=== PATIENT | female | born 1980 | race Caucasian/White ===

== ENCOUNTER 2019-06-20 21:48 | Emergency (ER) | payer BC ==
[2019-06-20] MEDS ORDERED: Ondansetron 4 MG/2 ML SDV IVPUSH ONE (22:14)
[2019-06-20] MEDS ORDERED: Sodium Chloride 0.9% 1,000 ML IV ONE (22:14)
[2019-06-20 22:45] LABS: BLOOD UREA NITROGEN,BUN 13 mg/dL (7.0-18.0); CARBON DIOXIDE,CO2 27.3 mmol/L (21.0-32.0); CHLORIDE,CL 104 mmol/L (98-107); GLUCOSE RANDOM 117 mg/dL (74-106); POTASSIUM,K 3.6 mmol/L (3.5-5.1); SODIUM,NA 142 mmol/L (136-145)
--- NOTE | 2019-06-20 22:47 | CR ---
INDICATION: Right shoulder and back pain, lightheaded, vomiting TECHNIQUE: Chest 2 views. COMPARISON: June 30, 2015 FINDINGS: Cardiovascular and mediastinum: Heart size and vasculature are normal in caliber and appearance. Mediastinum is within normal limits. Lungs and pleural spaces: Lungs are clear. No sign of infiltrate or mass. No sign of pleural effusion. No pneumothorax. Bones and soft tissues: There is an air-filled loop of small bowel in the upper abdomen measuring 4.3 cm in diameter, best seen on the lateral view. IMPRESSION: No sign of acute intrathoracic disease. Dilated loop of small bowel in the upper abdomen. Consider or CT abdomen pelvis for further evaluation if clinically indicated. Dictated by Maddi Son MD @ Jun 20 2019 10:42PM Signed by Dr. Maddi Son @ Jun 20 2019 10:44PM
--- NOTE | 2019-06-21 01:05 | EDM.PDOC ---
ED [facility] GENERAL MEDICAL PROBLEM - General Chief Complaint: General Stated Complaint: ARM PAIN, VOMITTING, BACK PAIN, CHEST PAIN Time Seen by Provider: 06/20/19 22:00 - History of Present Illness INITIAL COMMENTS - FREE TEXT/NARRATIVE: HPI 39-year-old morbidly obese female presents for evaluation of sudden onset feeling of upper back discomfort, accompanied by nausea and emesis 2, now with resolved symptoms. Denies chest pain, shortness of breath, fevers, chills, or further symptoms. Triage note: AOx4, states pain to upper back, feeling nauseous, hot & dizzy which started 30minutes ago, denies any chest pain or SOB. M/S/F/SocHx notable for: please see HPI; remainder reviewed with patient and in chart. ROS: Negative constitutional, eye, cardiovascular, pulmonary, GI, , MSK, skin , neurologic, psychiatric, endocrine unless noted in the HPI. Exam HR 90, RR 18, BP 143/96, T 36.8C, SaO2 98% on room air. Gen: Pleasant, non-toxic appearing, resting comfortably. HEENT: NC, AT, PEERL, EOMI. Resp: Clear to auscultation bilaterally, normal work of breathing, no accessory muscle usage. Card: Regular rate and rhythm with no murmurs, rubs, or gallops, extremities warm and well perfused. GI: Non-tender to palpation throughout all quadrants, no focal tenderness at McBurney's point, negative Rapp's sign, non-distended, no rebound or guarding. : No suprapubic tenderness to palpation. MSK: No visible deformities, strength and tone without visually appreciable deficit. Skin: Normal color with no visible lesions. Neuro: alert and oriented 3, no facial asymmetry, no gaze preference, no slurring of speech. CN II-III: pupils equal and reactive (4->2mm bilaterally); III, IV, : EOMI, V1-V3: sensation to touch bilaterally intact; VII: no facial asymmetry (frown / smile); VIII: no nystagmus; X: phonation intact, uvula midline; XI: trapezius 5/5 bilaterally, XII: tongue midline. Cerebellar: no pronator drift, [id number] testing without dysmetria bilaterally, heel to hua without dysmetria bilaterally. No C or T spine tenderness palpation. Psych: Mood and affect appropriate. Labs / Imaging: WBC 12.29, HB 13.8, sodium 142, potassium 3.6, troponin (10:10 PM) <0.050, troponin (12:25 AM) <0.050, CRP 0.70, ESR 11, d-dimer 0.37. CXR: no sign of acute intrathoracic disease. EKG: SR at [address]-segment elevations or depressions, T-wave inversions or new LBBB. MS interval 164 msec, QTc 464 msec, no delta waves, epsilon waves, coved or saddle ST-segment changes in leads V1-3, preseptal or inferior lead Q-waves, biphasic P-waves, or T-wave inversions; no LVH. MDM Previous chart, nursing note, labs, imaging, and vitals reviewed. A: 39-year-old morbidly obese female presents for evaluation of sudden onset feeling of upper back discomfort, accompanied by nausea and emesis 2, now with resolved symptoms. Evaluation: patient is well-appearing, the sudden and brief period of discomfort with emesis multiple occasions 92 is currently of unclear etiology, however the patients vitals and laboratory studies (WBC notwithstanding) are within normal limits. Chest x-rays without evidence of infection, mediastinal widening, or other abnormalities. The patients d-dimer is negative, given a Wells score of 0 this is appropriate for PE rule out/risk stratification. Similarly, with the low pretest probability by clinical Gestalt for dissection, and unremarkable chest x-ray, and a negative d-dimer, this entity is felt to be excluded as well. No evidence of ACS by nonischemic EKG and negative serial cardiac enzymes. No evidence of further cardiopulmonary abnormalities given the ECG and the above findings. Electrolytes are within acceptable limits. There is mild leukocytosis, this is currently felt to be due to either stress demargination or early findings of gastroenteritis. Spinal infection was also considered, however given lack of point tenderness and normal ESR and CRP as well as absence of any neuro deficits, this is considered to be effectively excluded. At the time of the patients ED care her vital signs were stable and within acceptable limits. Patient was given IV hydration, Zofran, was able to take PO well, and had no further recurrence of symptoms. Disposition: discharge with PCP follow-up recommended. Return to care precautions provided. Impression: nausea and vomiting. (please reference below for remainder of encounter information) Liban' (Signs & Sx of DVT - 0, PE is #1 or equally likelihood - 0, HR > 100 - 0 , immobilization of >=3 days or surgery in last 28 days - 0, prior DVT or PE - 0 , hemoptysis - 0, malignancy w/ tx in last 6 mo or palliative - 0). upper back Pain Score (Numeric/FACES): 6 - Related Data Allergies Allergy/AdvReac Type Severity Reaction Status Date / Time penicillin Allergy Hives Verified 06/20/19 21:50 shellfish derived Allergy throat Verified 06/20/19 21:50 swelling Sulfa (Sulfonamide Allergy Swelling Verified 06/20/19 21:50 Antibiotics) Home Meds: Home Meds ALPRAZolam [Alprazolam] 0.5 mg PO ASDIRECTED PRN 11/24/14 [History] Escitalopram Oxalate [Lexapro] 10 mg PO DAILY 06/20/19 [History] Past Medical History HEENT History: Reports: Sinusitis, Other (See Below) Other HEENT History: waering spectables Cardiovascular History: Reports: None Respiratory History: Reports: None Gastrointestinal History: Reports: None Genitourinary History: Reports: None SAILING MASTER History: Reports: None Musculoskeletal History: Reports: Other (See Below) Other Musculoskeletal History: surgery for lt foot fx, Neurological History: Reports: None Psychiatric History: Reports: Anxiety, Depression Endocrine/Metabolic History: Reports: None 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[place] Department: None Hematologic History: Reports: None Immunologic History: Reports: None Oncologic (Cancer) History: Reports: None Dermatologic History: Reports: Other (See Below) Other Dermatologic History: Eczema - Infectious Disease History Infectious Disease History: Reports: None - Past Surgical History Head Surgeries/Procedures: Reports: None GI Surgical History: Reports: Colonoscopy, Other (See Below) Female Surgical History: Reports: None Endocrine Surgical History: Reports: None Neurological Surgical History: Reports: None Social & Family History - Family History Family Medical History: Noncontributory - Tobacco Use Smoking Status *Q: Never Smoker - Caffeine Use Caffeine Use: Reports: Soda - Recreational Drug Use Recreational Drug Use: No ED ROS GENERAL - Review of Systems Review Of Systems: See Below ED EXAM, GENERAL - Physical Exam Exam: See Below Course - Vital Signs Last Recorded V/S: Last Vital Signs Temp 36.4 C 06/20/19 23:35 Pulse 73 06/20/19 23:35 Resp 18 06/20/19 23:35 BP 150/86 H 06/20/19 23:35 Pulse Ox 97 06/20/19 23:35 - Orders/Labs/Meds Orders: Active Orders 24 hr Category Date Time Status EKG 12 Lead [EKG Documentation Completion] [RC] STAT Care 06/20/19 21:57 Active Labs: Laboratory Tests 06/20/19 06/20/19 06/20/19 Range/Units 22:10 22:10 22:10 WBC 12.29 H (4.0-11.0) K/uL RBC 4.73 (4.30-5.90) M/uL Hgb 13.8 (12.0-16.0) g/dL Hct 41.8 (36.0-46.0) % MCV 88.4 (80.0-98.0) fL MCH 29.2 (27.0-32.0) pg MCHC 33.0 (31.0-37.0) g/dL RDW Std Deviation 44.4 (28.0-62.0) fl RDW Coeff of Vikki 14 (11.0-15.0) % Plt Count 265 (150-400) K/uL MPV 12.30 H (7.40-12.00) fL Neut % (Auto) 56.2 (48.0-80.0) % Lymph % (Auto) 31.4 (16.0-40.0) % Mcduffie % (Auto) 9.6 (0.0-15.0) % Eos % (Auto) 2.3 (0.0-7.0) % Baso % (Auto) 0.5 (0.0-1.5) % Neut # (Auto) 6.9 H (1.4-5.7) K/uL Lymph # (Auto) 3.9 H (0.6-2.4) K/uL Mcduffie # (Auto) 1.2 H (0.0-0.8) K/uL Eos # (Auto) 0.3 (0.0-0.7) K/uL Baso # (Auto) 0.1 (0.0-0.1) K/uL Nucleated RBC % 0.0 /100WBC Nucleated RBCs # 0 K/uL ESR (0-19) mm/hr D-Dimer, Quantitative 0.37 (0.0-0.50) mg/L FEU Sodium 142 (136-145) mmol/L Potassium 3.6 (3.5-5.1) mmol/L Chloride 104 (98-107) mmol/L Carbon Dioxide 27.3 (21.0-32.0) mmol/L BUN 13 (7.0-18.0) mg/dL Creatinine 0.9 (0.6-1.0) mg/dL Est Cr Clr Drug Dosing 83.23 mL/min Estimated GFR (MDRD) > 60.0 ml/min Glucose 117 H (74-106) mg/dL Calcium 8.8 (8.5-10.1) mg/dL Troponin I < 0.050 (0.000-0.056) ng/mL C-Reactive Protein 0.70 (0.00-0.90) mg/dL 06/20/19 06/21/19 Range/Units 22:10 00:25 WBC (4.0-11.0) K/uL RBC (4.30-5.90) M/uL Hgb (12.0-16.0) g/dL Hct (36.0-46.0) % MCV (80.0-98.0) fL MCH (27.0-32.0) pg MCHC (31.0-37.0) g/dL RDW Std Deviation (28.0-62.0) fl RDW Coeff of Vikki (11.0-15.0) % Plt Count (150-400) K/uL MPV (7.40-12.00) fL Neut % (Auto) (48.0-80.0) % Lymph % (Auto) (16.0-40.0) % Mcduffie % (Auto) (0.0-15.0) % Eos % (Auto) (0.0-7.0) % Baso % (Auto) (0.0-1.5) % Neut # (Auto) (1.4-5.7) K/uL Lymph # (Auto) (0.6-2.4) K/uL Mcduffie # (Auto) (0.0-0.8) K/uL Eos # (Auto) (0.0-0.7) K/uL Baso # (Auto) (0.0-0.1) K/uL Nucleated RBC % /100WBC Nucleated RBCs # K/uL ESR 11 (0-19) mm/hr D-Dimer, Quantitative (0.0-0.50) mg/L FEU Sodium (136-145) mmol/L Potassium (3.5-5.1) mmol/L Chloride (98-107) mmol/L Carbon Dioxide (21.0-32.0) mmol/L BUN (7.0-18.0) mg/dL Creatinine (0.6-1.0) mg/dL Est Cr Clr Drug Dosing mL/min Estimated GFR (MDRD) ml/min Glucose (74-106) mg/dL Calcium (8.5-10.1) mg/dL Troponin I < 0.050 (0.000-0.056) ng/mL C-Reactive Protein (0.00-0.90) mg/dL Meds: Medications Discontinued Medications Generic Name Dose Route Start Last Admin Trade Name Ariel PRN Reason Stop Dose Admin Sodium Chloride 1,000 mls @ 1,000 mls/hr 06/20/19 22:14 06/20/19 22:34 Normal Saline IV 06/20/19 23:13 1,000 mls/hr .Bolus ONE Administration Ondansetron HCl 4 mg 06/20/19 22:14 06/20/19 22:34 Zofran IVPUSH 06/20/19 22:15 4 mg ONETIME ONE Administration Departure - Departure Time of Disposition: 01:05 Disposition: Home, Self-Care 01 Clinical Impression: Nausea and vomiting - Discharge Information Referrals: Rachid Dai MD [Primary Care Provider] - Additional Instructions: You were in seen in the [facility] Emergency Department for evaluation of nausea vomiting. At time of your evaluation the cause of your symptoms is unclear, however no significant abnormalities were noted on your emergency department evaluation. Please read and follow all of the instructions below. Please follow up with your primary care physician within 48 hours repeat evaluation of your symptoms as well as your asymptomatic hypertension. When calling for follow-up care, please make the office aware that this follow-up is from your recent emergency room visit. If for any reason you are refused follow- up, please contact the [facility] Emergency Department at and asked to speak to the emergency department charge nurse. Your care today was limited to identifying and treating emergent medical problems only. Many people have subtle differences in their test results that require follow up with their outpatient physician(s) to correctly determine if this represents a normal variation or concerning abnormality with respect to your specific health. The care given to you today was limited to identifying and treating emergent medical problems - you need to request a copy of all of your medical records from today's visit and follow up with your outpatient physician(s) to review both today's visit and your overall health. If you have any new symptoms or if you are at all concerned about your health please return immediately to the emergency department. Prescriptions: If you are uninsured or have financial difficulties with filling your prescription(s), you may consider using a free pharmacy discount service such as [employer] ([employer]) or [employer] ([employer]). These services allow you to search for a medication on your phone (or computer) and obtain a coupon that usually has a significant discount from the list de la o at a pharmacy. Your physician as well as [facility] does not have a financial relationship with either of these services. You may also wish to speak with your physician to determine if lower cost prescriptions are possible. Obtaining primary care: 1. [facility] provides pediatrics (children), family medicine (children, adults, and some obstetrical care), and internal medicine (adults). Further specialty care is also available. Same day appointments are available. They may be contacted at [phone] and are open Thursday through Thursday 8 AM to 5 PM. The [facility] clinics are located at [facility], [address] [place], [place] [address]. 2. [facility] offers family medicine, internal medicine, womens health, and further specialty care. [facility] may be contacted at [phone]. [facility] is located at [address] [place], [address]. 3. If you have health insurance, please also contact your insurer for a list of accepting providers under your policy, you may contact these providers for further health care. Occupational health: Work related injuries may consider following up with [facility], . Occupational health services are located at [address] [place] [address] and are open Thursday through Thursday from 7: 30 am to 5:00 pm. Obstetrical and Gynecological Care: [facility], , Thursday through Thursday 8 AM to [address] [place] [address]. Eyecare: If you have an eye injury you should follow up with your ink maker or with [facility], at [phone] or [phone] , they are located at [address] [place] [address]. Dental Care Rajat Stein DDS. [address] [place], [place]. Ph. [phone] Marino Stein DDS MS. [address] [facility] [address], [place], [place]. Ph. Vikram Avery DDS. [address] [place]. Ph. [phone] Son Lucero DDS. [address] [facility] [address] [place], [place]. Ph. [phone] Tayo Bain DDS PC. [address] [facility] [address] [place], [place]. Ph. Colton King DDS. [address] [facility]. Ph. [phone] [facility]. [address], [place]. Ph. [phone] [facility]. [address], [place], [place]. Ph. [phone] [facility] [address] [place] [phone]. Ph. [facility]. [address] [place] [address] [address] [place], [place]. Ph. [facility]. [address], [place], [place]. Ph. Sepsis Event Note - Evaluation Sepsis Screening Result: No Definite Risk - Focused Exam Vital Signs: Vital Signs Temp Pulse Resp BP Pulse Ox 06/20/19 23:35 36.4 C 73 18 150/86 H 97 06/20/19 21:51 36.8 C 90 18 143/96 H 98 Date Exam was Performed: 06/21/19 Time Exam was Performed: 01:04 - My Orders Last 24 Hours: My Active Orders 06/20/19 21:57 EKG 12 Lead [EKG Documentation Completion] [] STAT - Assessment/Plan Last 24 Hours: My Active Orders 06/20/19 21:57 EKG 12 Lead [EKG Documentation Completion] [RC] STAT
[2019-06-21 01:15] VITALS: BP 128/83; PULSE 76
== END 2019-06-21 01:10 | disposition home or self-care (01) ==
LOC: MW.ED 21:48
DX: R11.2 Nausea with vomiting, unspecified (principal); M54.6 Pain in thoracic spine; E66.01 Morbid (severe) obesity due to excess calories; F41.9 Anxiety disorder, unspecified; F32.9 Major depressive disorder, single episode, unspecified; Z88.0 Allergy status to penicillin; Z88.2 Allergy status to sulfonamides; Z91.013 Allergy to seafood; Z79.899 Other long term (current) drug therapy
CPT/HCPCS: 36415; 71046; 80048; 84484; 85025; 85379; 85652; 86140; 93005; 96361; 96374; 99284; J2405; J7030

== ENCOUNTER 2021-08-30 12:05 | Emergency (ER) | payer BC ==
[2021-08-30 14:15] VITALS: BP 182/89; PULSE 88
== END 2021-08-30 14:10 | disposition home or self-care (01) ==
LOC: MW.ED 12:05
DX: S09.90XA Unspecified injury of head, initial encounter (principal); F41.9 Anxiety disorder, unspecified; F32.A Depression, unspecified; Z88.0 Allergy status to penicillin; Z88.2 Allergy status to sulfonamides; Z91.013 Allergy to seafood; Z79.899 Other long term (current) drug therapy; W20.8XXA Other cause of strike by thrown, projected or falling object, initial encounter; Y92.094 Garage of other non-institutional residence as the place of occurrence of the external cause
CPT/HCPCS: 70450; 70450-26; 99283-25

== ENCOUNTER 2022-04-25 22:09 | Emergency (ER) | payer BC ==
[2022-04-26 01:15] LABS: CORONAVIRUS COVID-19 NAA NEGATIVE (NEGATIVE); INFLUENZA A NAA NEGATIVE (NEGATIVE); INFLUENZA B NAA NEGATIVE (NEGATIVE); RESPIRATORY SYNCYTIAL VIR NAA NEGATIVE (NEGATIVE)
[2022-04-26] MEDS ORDERED: Meclizine 25 MG Tab PO ONE (01:15)
[2022-04-26 02:33] VITALS: BP 150/85; PULSE 74
== END 2022-04-26 02:32 | disposition home or self-care (01) ==
LOC: MW.ED 22:09
DX: H81.10 Benign paroxysmal vertigo, unspecified ear (principal); I10 Essential (primary) hypertension; Z88.0 Allergy status to penicillin; Z91.013 Allergy to seafood; Z88.2 Allergy status to sulfonamides; Z79.899 Other long term (current) drug therapy; Z20.822 Contact with and (suspected) exposure to COVID-19
CPT/HCPCS: 0241U; 99284; A9270